=== PATIENT | female | born 1935 | race Caucasian/White ===

== ENCOUNTER 2023-11-09 12:22 | Inpatient (IN) | payer MEDICARE ==
[2023-11-09 12:52] LABS: #Basophils 0.05 10x3/uL (0.0-0.2); %Basophils 0.5 % (0.0-1.0); %Eosinophils 3.1 % (0.0-10.0); %Lymphocytes 14.1 % (21.0-51.0); %Monocytes 13.5 % (0.0-10.0); %Neutrophils 68.4 % (42.0-75.0); Hematocrit 30.3 % (36.0-47.0); Hemoglobin 8.7 g/dL (12.0-16.0); Mean Corpuscular HGB CONC 28.7 g/dL (32.0-36.0); Mean Corpuscular Hemoglobin 22.3 pg (27.0-31.0); Mean Corpuscular Volume 77.5 fL (78.0-98.0); Mean Platelet Volume 10.7 fL (7.4-10.4); Platelet Count 284 10x3/uL (130-400); RBC Distribution Width 20.4 % (11.5-14.5); Red Blood Cell (RBC) Count 3.91 mill/uL (4.20-5.40)
[2023-11-09 13:04] LABS: ALT (SGPT) 23 U/L (8-55); AST (SGOT) 25 U/L (5-34); Albumin 2.9 g/dL (3.4-4.8); Alkaline Phosphatase 82 U/L (40-110); Anion Gap 13 mmol/L (10-20); BUN (Urea Nitrogen) 22 mg/dL (9.8-20.1); Bilirubin, Total 0.3 mg/dL (0.2-1.2); Calc. Creatinine Clearance 0 mL/min (70-130); Calcium 8.5 mg/dL (7.8-10.44); Carbon Dioxide 19 mmol/L (23-31); Chloride 114 mmol/L (98-107); Estimated GFR 74; Globulin 3.5 g/dL (2.4-3.5); Glucose 84 mg/dL (83-110); Magnesium 1.8 mg/dL (1.6-2.6); Potassium 3.7 mmol/L (3.5-5.1); Protein, Total 6.4 g/dL (5.8-8.1); Sodium 142 mmol/L (136-145)
[2023-11-09 13:06] LABS: Troponin I 0.013 ng/mL (< 0.028)
[2023-11-09 13:08] LABS: INR-International Normal Ratio 1.1; Prothrombin Time 14.5 sec (12.0-14.7)
[2023-11-09 13:12] LABS: PTT 22.5 sec (22.9-36.1)
[2023-11-09 13:20] LABS: Hypochromia SLIGHT = 6-15 cells HPF (0-5); Platelet Adequacy Comment Platelets Normal
[2023-11-09 15:24] VITALS: BMI 27.4
[2023-11-09] MEDS ORDERED: hydrALAZINE 20 MG/ML VIAL SLOW IVP PRN (15:31)
[2023-11-09] MEDS ORDERED: Aspirin Chewable 81 MG TAB ONE (15:57)
[2023-11-09] MEDS: Aspirin 81 mg Enteric Coated Tablet PO SCH (15:59)
[2023-11-09] MEDS: Ferrous Sulfate 325 MG TAB PO SCH (20:39)
[2023-11-09] MEDS: Atorvastatin Calcium 40 MG TAB PO SCH (20:39)
[2023-11-10 03:59] LABS: #Basophils 0.05 10x3/uL (0.0-0.2); %Basophils 0.5 % (0.0-1.0); %Eosinophils 5.8 % (0.0-10.0); %Lymphocytes 23.3 % (21.0-51.0); %Monocytes 14.8 % (0.0-10.0); %Neutrophils 55.3 % (42.0-75.0); Hematocrit 27.6 % (36.0-47.0); Hemoglobin 8.6 g/dL (12.0-16.0); Mean Corpuscular HGB CONC 31.2 g/dL (32.0-36.0); Mean Corpuscular Hemoglobin 22.1 pg (27.0-31.0); Platelet Count 297 10x3/uL (130-400); RBC Distribution Width 19.9 % (11.5-14.5); Red Blood Cell (RBC) Count 3.89 mill/uL (4.20-5.40)
[2023-11-10 04:16] LABS: Anion Gap 12 mmol/L (10-20); BUN (Urea Nitrogen) 16 mg/dL (9.8-20.1); Calc. Creatinine Clearance 64 mL/min (70-130); Calcium 8.7 mg/dL (7.8-10.44); Carbon Dioxide 21 mmol/L (23-31); Cardiac Risk 2.6 (Less than 4.5); Chloride 113 mmol/L (98-107); Cholesterol 87 mg/dl (< 200 Desired); Estimated GFR 83; Glucose 95 mg/dL (83-110); HDL Cholesterol 33 mg/dL (>60 Neg Risk); LDL Cholesterol, Calculated 43 mg/dL; Potassium 3.2 mmol/L (3.5-5.1); Sodium 143 mmol/L (136-145); Triglycerides 56 mg/dL (Less than 150)
[2023-11-10 04:25] LABS: Anisocytosis MODERATE=16-30 cells HPF (0-5); Hypochromia SLIGHT = 6-15 cells HPF (0-5); Macrocytosis SLIGHT = 6-15 cells HPF (0-5); Microcytosis SLIGHT = 6-15 cells HPF (0-5); Ovalocytes SLIGHT = 2-5 cells HPF (0-1); Platelet Adequacy Comment Platelets Normal; Polychromasia SLIGHT = 2-3 cells HPF (0-2); Target Cells SLIGHT = 2-5 cells HPF (0-1)
[2023-11-10] MEDS ORDERED: Aspirin 81 mg Enteric Coated Tablet PO SCH (09:00)
[2023-11-10] MEDS: Aspirin Chewable 81 MG TAB PO SCH (09:55)
[2023-11-10] MEDS: Pantoprazole DR 40 MG TAB PO SCH (09:55)
[2023-11-10] MEDS: Oxybutynin 5 MG TAB PO SCH (09:55)
[2023-11-10] MEDS: Hydrochlorothiazide 25 MG TAB PO SCH (09:55)
[2023-11-10] MEDS: Sertraline 25 MG TAB PO SCH (09:55)
[2023-11-10] MEDS ORDERED: Iopamidol-370 76% 500 ML MDV (1 ML CHARGE) ONE (10:49)
[2023-11-10] MEDS: Isosorbide Mononitrate 20 MG TAB PO SCH (11:24)
[2023-11-10] MEDS: Lisinopril 10 MG TAB PO SCH (16:54)
[2023-11-10] MEDS: Clopidogrel Bisulfate 75 MG TAB PO SCH (16:54)
[2023-11-10] MEDS: Ciprofloxacin 500 MG TAB PO SCH (16:54)
[2023-11-11 00:32] LABS: Bacteria/HPF None Seen HPF (None Seen); Bilirubin Negative (Negative); Blood, Urine Negative (Negative); CAUTI Indications for Culture Alt mental st,lethar; Clarity Clear (Clear); Glucose, Urine (Dipstick) Normal (Negative); Ketone, Urine Negative (Negative); Leukocyte Negative Leu/uL (Negative); Nitrite Negative (Negative); Protein, Urine (Dipstick) Negative (Neg-Trace); RBC/HPF 0-3 HPF (0-3); Specific Gravity, Urine 1.033 (1.002-1.036); Squamous Epithelial 0-3 HPF (0-3); Urobilinogen Normal mg/dL (Less than 2); WBC/HPF 0-3 HPF (0-3); pH, Urine 5.5 (5.0-9.0)
[2023-11-11 00:33] LABS: Urine Culture Reflex No No
[2023-11-11 05:08] LABS: #Basophils 0.07 10x3/uL (0.0-0.2); %Basophils 0.7 % (0.0-1.0); %Eosinophils 6.1 % (0.0-10.0); %Lymphocytes 23.5 % (21.0-51.0); %Monocytes 15.6 % (0.0-10.0); %Neutrophils 53.7 % (42.0-75.0); Hematocrit 30.8 % (36.0-47.0); Hemoglobin 9.3 g/dL (12.0-16.0); Mean Corpuscular HGB CONC 30.2 g/dL (32.0-36.0); Mean Corpuscular Hemoglobin 22.3 pg (27.0-31.0); Mean Corpuscular Volume 73.9 fL (78.0-98.0); Platelet Count 342 10x3/uL (130-400); Red Blood Cell (RBC) Count 4.17 mill/uL (4.20-5.40)
[2023-11-11 05:18] LABS: Anion Gap 13 mmol/L (10-20); BUN (Urea Nitrogen) 14 mg/dL (9.8-20.1); Calc. Creatinine Clearance 62 mL/min (70-130); Calcium 8.9 mg/dL (7.8-10.44); Carbon Dioxide 21 mmol/L (23-31); Chloride 107 mmol/L (98-107); Estimated GFR 80; Glucose 105 mg/dL (83-110); Potassium 3.3 mmol/L (3.5-5.1); Sodium 138 mmol/L (136-145)
[2023-11-11] MEDS: Ciprofloxacin 500 MG TAB PO SCH (07:00)
[2023-11-11] MEDS: Lisinopril 10 MG TAB PO SCH (08:55)
[2023-11-11] MEDS: Clopidogrel Bisulfate 75 MG TAB PO SCH (08:55)
[2023-11-11] MEDS: Carvedilol 25 MG TAB PO SCH (20:37)
[2023-11-12 04:27] LABS: #Basophils 0.05 10x3/uL (0.0-0.2); %Basophils 0.6 % (0.0-1.0); %Eosinophils 5.3 % (0.0-10.0); %Lymphocytes 22.7 % (21.0-51.0); %Monocytes 14.3 % (0.0-10.0); %Neutrophils 56.7 % (42.0-75.0); Hematocrit 27.8 % (36.0-47.0); Hemoglobin 8.5 g/dL (12.0-16.0); Mean Corpuscular HGB CONC 30.6 g/dL (32.0-36.0); Mean Corpuscular Hemoglobin 22.7 pg (27.0-31.0); Mean Corpuscular Volume 74.1 fL (78.0-98.0); Platelet Count 301 10x3/uL (130-400); RBC Distribution Width 21.4 % (11.5-14.5); Red Blood Cell (RBC) Count 3.75 mill/uL (4.20-5.40)
[2023-11-12 04:40] LABS: Anion Gap 14 mmol/L (10-20); BUN (Urea Nitrogen) 22 mg/dL (9.8-20.1); Calc. Creatinine Clearance 57 mL/min (70-130); Calcium 8.5 mg/dL (7.8-10.44); Carbon Dioxide 20 mmol/L (23-31); Chloride 106 mmol/L (98-107); Estimated GFR 73; Glucose 107 mg/dL (83-110); Potassium 3.3 mmol/L (3.5-5.1); Sodium 137 mmol/L (136-145)
[2023-11-12] MEDS: Potassium Chloride 20 MEQ TAB PO SCH (08:24)
[2023-11-12] MEDS: Carvedilol 25 MG TAB PO SCH (08:24)
[2023-11-13 04:27] LABS: #Basophils 0.04 10x3/uL (0.0-0.2); %Basophils 0.5 % (0.0-1.0); %Eosinophils 4.9 % (0.0-10.0); %Lymphocytes 21.2 % (21.0-51.0); %Monocytes 16.6 % (0.0-10.0); %Neutrophils 56.3 % (42.0-75.0); Hematocrit 28.6 % (36.0-47.0); Hemoglobin 8.7 g/dL (12.0-16.0); Mean Corpuscular HGB CONC 30.4 g/dL (32.0-36.0); Mean Corpuscular Hemoglobin 22.7 pg (27.0-31.0); Mean Corpuscular Volume 74.5 fL (78.0-98.0); Mean Platelet Volume 11.2 fL (7.4-10.4); Platelet Count 314 10x3/uL (130-400); RBC Distribution Width 22.5 % (11.5-14.5); Red Blood Cell (RBC) Count 3.84 mill/uL (4.20-5.40)
[2023-11-13 04:40] LABS: Anion Gap 15 mmol/L (10-20); BUN (Urea Nitrogen) 23 mg/dL (9.8-20.1); Calc. Creatinine Clearance 56 mL/min (70-130); Calcium 8.2 mg/dL (7.8-10.44); Carbon Dioxide 19 mmol/L (23-31); Chloride 109 mmol/L (98-107); Estimated GFR 72; Glucose 105 mg/dL (83-110); Sodium 139 mmol/L (136-145)
[2023-11-13 05:02] LABS: Anisocytosis SLIGHT = 6-15 cells HPF (0-5); Burr Cells SLIGHT = 2-5 cells HPF (0-1); Hypochromia SLIGHT = 6-15 cells HPF (0-5); Microcytosis SLIGHT = 6-15 cells HPF (0-5); Platelet Adequacy Comment Platelets Normal; Polychromasia SLIGHT = 2-3 cells HPF (0-2)
[2023-11-14 05:06] LABS: #Basophils 0.06 10x3/uL (0.0-0.2); %Basophils 0.6 % (0.0-1.0); %Eosinophils 4.3 % (0.0-10.0); %Lymphocytes 21.1 % (21.0-51.0); %Neutrophils 58.5 % (42.0-75.0); Hematocrit 29.4 % (36.0-47.0); Hemoglobin 9.1 g/dL (12.0-16.0); Mean Corpuscular Hemoglobin 23.2 pg (27.0-31.0); Mean Platelet Volume 10.7 fL (7.4-10.4); Platelet Count 289 10x3/uL (130-400); RBC Distribution Width 22.9 % (11.5-14.5); Red Blood Cell (RBC) Count 3.92 mill/uL (4.20-5.40)
[2023-11-14 05:25] LABS: Anion Gap 14 mmol/L (10-20); BUN (Urea Nitrogen) 21 mg/dL (9.8-20.1); Calc. Creatinine Clearance 60 mL/min (70-130); Calcium 8.6 mg/dL (7.8-10.44); Carbon Dioxide 21 mmol/L (23-31); Chloride 105 mmol/L (98-107); Estimated GFR 78; Glucose 100 mg/dL (83-110); Sodium 136 mmol/L (136-145)
[2023-11-14 08:39] VITALS: TEMP 98.4
[2023-11-14 10:54] VITALS: BP 113/57
== END 2023-11-14 10:44 | disposition swing bed (61) | DRG 67 ==
LOC: ERS 12:22 → ERHOLD 14:56 → 2SE 17:04 → T4-A 11-13 20:02
PROVIDERS: ADMIT Hospitalist; ATTEND Internal Medicine
DX: I65.21 Occlusion and stenosis of right carotid artery (principal); G93.41 Metabolic encephalopathy; A04.4 Other intestinal Escherichia coli infections; I48.0 Paroxysmal atrial fibrillation; I10 Essential (primary) hypertension; I25.10 Atherosclerotic heart disease of native coronary artery without angina pectoris; Z79.899 Other long term (current) drug therapy; Z79.82 Long term (current) use of aspirin; Z95.0 Presence of cardiac pacemaker; F32.A Depression, unspecified
CPT/HCPCS: 36415; 36416; 70450; 70496; 70498; 71045; 80048; 80053; 80061; 81001; 83605; 83735; 83880; 84484; 85025; 85610; 85730; 87040; 93005; 93306; 93880; Q9967

== ENCOUNTER 2024-04-20 01:29 | Emergency (ER) | payer MEDICARE ==
[2024-04-20 03:01] LABS: #Basophils 0.04 10x3/uL (0.0-0.2); %Basophils 0.3 % (0.0-1.0); %Eosinophils 2.4 % (0.0-10.0); %Lymphocytes 12.4 % (21.0-51.0); %Monocytes 10.5 % (0.0-10.0); %Neutrophils 73.9 % (42.0-75.0); Hematocrit 43.7 % (36.0-47.0); Hemoglobin 14.3 g/dL (12.0-16.0); Mean Corpuscular HGB CONC 32.7 g/dL (32.0-36.0); Mean Corpuscular Hemoglobin 29.5 pg (27.0-31.0); Mean Corpuscular Volume 90.3 fL (78.0-98.0); Mean Platelet Volume 11.5 fL (7.4-10.4); Platelet Count 251 10x3/uL (130-400); RBC Distribution Width 16.3 % (11.5-14.5); Red Blood Cell (RBC) Count 4.84 mill/uL (4.20-5.40)
[2024-04-20 03:16] LABS: ALT (SGPT) 32 U/L (8-55); AST (SGOT) 25 U/L (5-34); Albumin 3.7 g/dL (3.4-4.8); Alkaline Phosphatase 112 U/L (40-110); Anion Gap 15 mmol/L (10-20); BUN (Urea Nitrogen) 38 mg/dL (9.8-20.1); Bilirubin, Total 0.5 mg/dL (0.2-1.2); Calc. Creatinine Clearance 0 mL/min (70-130); Calcium 9.1 mg/dL (7.8-10.44); Carbon Dioxide 20 mmol/L (23-31); Chloride 104 mmol/L (98-107); Estimated GFR 65; Globulin 4.2 g/dL (2.4-3.5); Glucose 130 mg/dL (83-110); Magnesium 2.1 mg/dL (1.6-2.6); Potassium 3.8 mmol/L (3.5-5.1); Protein, Total 7.9 g/dL (5.8-8.1); Sodium 135 mmol/L (136-145)
[2024-04-20 03:22] LABS: Troponin I Less than 0.010 ng/mL (< 0.028)
[2024-04-20 05:41] LABS: Bacteria/HPF None Seen HPF (None Seen); Bilirubin Negative (Negative); Blood, Urine Negative (Negative); CAUTI Indications for Culture Alt mental st,lethar; Clarity Clear (Clear); Glucose, Urine (Dipstick) Normal (Negative); Ketone, Urine Negative (Negative); Leukocyte Negative Leu/uL (Negative); Nitrite Negative (Negative); Protein, Urine (Dipstick) Negative (Neg-Trace); RBC/HPF None Seen HPF (0-3); Squamous Epithelial None Seen HPF (0-3); Urobilinogen Normal mg/dL (Less than 2); WBC/HPF None Seen HPF (0-3); pH, Urine 5.5 (5.0-9.0)
[2024-04-20 05:42] LABS: Urine Culture Reflex No No
[2024-04-20 08:41] LABS: Specific Gravity, Urine 1.007 (1.002-1.036)
== END 2024-04-20 07:04 | disposition home or self-care (01) ==
LOC: ERS 01:29
DX: R42 Dizziness and giddiness (principal); I10 Essential (primary) hypertension; I25.10 Atherosclerotic heart disease of native coronary artery without angina pectoris; I48.91 Unspecified atrial fibrillation; K21.9 Gastro-esophageal reflux disease without esophagitis; E78.5 Hyperlipidemia, unspecified; I25.2 Old myocardial infarction; Z79.82 Long term (current) use of aspirin; Z79.899 Other long term (current) drug therapy
CPT/HCPCS: 36415; 51701; 70450; 71045; 72125; 80053; 81001; 83605; 83735; 84484; 85025; 93005